=== PATIENT | female | born 1955 | race Caucasian/White ===

== ENCOUNTER → 2017-06-10 | Outpatient (CLI) | payer BC, OTHER | LOC: COL.RAD 08:02 | DX: K44.9 Diaphragmatic hernia without obstruction or gangrene (principal); Z98.890 Other specified postprocedural states | CPT/HCPCS: A9541 ==

== ENCOUNTER → 2023-03-28 | Outpatient (CLI) | payer MEDICARE, OTHER ==
[~2023-03-28] MED LIST: ALLEGRA 180MG180 MG PO; CARAFATE 1GM1 G PO; CRESTOR5 MG PO; DESYREL 100MG100 MG PO; EFFEXOR XR37.5 MG/CA PO; LIDODERM 5% PATC1 EA TP; NEUPRO1 MG/24 HR TD; NEURONTIN300 MG/CAP PO; PEPCID 20MG TAB20 MG PO; PREMARIN .3MG0.3 MG PO; PROVENTIL0.09 MG/A1 IH; TYLENOL 500MG500 MG PO; ZESTRIL2.5 MG PO
== END ==
LOC: MHCPAIN 15:07
DX: M25.551 Pain in right hip (principal); M54.50 Low back pain, unspecified; M51.36 Other intervertebral disc degeneration, lumbar region; M25.561 Pain in right knee; M47.816 Spondylosis without myelopathy or radiculopathy, lumbar region
CPT/HCPCS: G0463

== ENCOUNTER → 2023-04-22 | Outpatient (CLI) | payer MEDICARE | LOC: MHCPAIN 11:45 | DX: M48.061 Spinal stenosis, lumbar region without neurogenic claudication (principal); M54.16 Radiculopathy, lumbar region | CPT/HCPCS: J1100; Q9967 ==

== ENCOUNTER → 2023-04-25 | Outpatient (CLI) | payer MEDICARE, OTHER | LOC: COL.RAD 12:40 | DX: M25.551 Pain in right hip (principal) ==

== ENCOUNTER → 2023-05-07 | Outpatient (CLI) | payer MEDICARE, OTHER | LOC: MHCPAIN 13:54 | DX: M16.11 Unilateral primary osteoarthritis, right hip (principal); M54.50 Low back pain, unspecified; M51.36 Other intervertebral disc degeneration, lumbar region | CPT/HCPCS: G0463 ==